=== PATIENT | female | born 1990 | race African-American/Black ===

== ENCOUNTER 2017-11-25 13:07 | Emergency (ER) | payer OTHER ==
[2017-11-25] MEDS ORDERED: Mag-Al 1200 mg/1200 mg/30 ML UDCUP ONE (14:15)
[2017-11-25] MEDS ORDERED: Lidocaine Viscous Sol 2% 15 ml UD Cup ONE (14:15)
[2017-11-25 14:17] LABS: #Basophils 0.1 thou/uL (0.0-0.2); #Eosinphils 0.1 thou/uL (0.0-0.7); #Lymphocytes 3.8 thou/uL (1.20-3.40); #Monocytes 0.8 thou/uL (0.11-0.59); #Neutrophils 8.7 thou/uL (1.40-6.50); %Eosinophils 1.1 % (0.0-10.0); %Lymphocytes 28.1 % (21.0-51.0); %Monocytes 5.7 % (0.0-10.0); %Neutrophils 64.1 % (42.0-75.0); Hemoglobin 13.4 g/dL (12.0-16.0); Mean Corpuscular HGB CONC 34.1 g/dL (32.0-36.0); Mean Corpuscular Hemoglobin 28.7 pg (27.0-31.0); Mean Corpuscular Volume 84.1 fl (81.0-99.0); Mean Platelet Volume 7.5 fL (7.4-10.4); Platelet Count 249 thou/uL (130-400); RBC Distribution Width 12.5 % (11.5-14.5); Red Blood Cell (RBC) Count 4.67 mill/uL (4.20-5.40); White Blood Cell (WBC) Count 13.6 thou/uL (4.8-10.8)
[2017-11-25 14:35] LABS: ALT (SGPT) 34 U/L (8-55); AST (SGOT) 18 U/L (5-34); Albumin 3.8 g/dL (3.5-5.0); Alkaline Phosphatase 69 U/L (40-150); Anion Gap 10 mmol/L (10-20); BUN (Urea Nitrogen) 7 mg/dL (7.0-18.7); Bilirubin, Total 0.2 mg/dL (0.2-1.2); Calc. Creatinine Clearance 0 mL/min (70-130); Calcium 9.4 mg/dL (7.8-10.44); Carbon Dioxide 24 mmol/L (22-29); Chloride 104 mmol/L (98-107); Estimated GFR-MDRD Greater than 90; Globulin 3.8 g/dL (2.4-3.5); Glucose 77 mg/dL (70-105); Potassium 3.9 mmol/L (3.5-5.1); Protein, Total 7.6 g/dL (6.0-8.3); Sodium 134 mmol/L (136-145)
[2017-11-25 14:40] LABS: CKMB 0.3 ng/mL (0-6.6); Troponin I Less than 0.010 ng/mL (< 0.028)
--- NOTE | 2017-11-25 15:36 | RAD ---
ONE VIEW CHEST: COMPARISON: 09/28/12. HISTORY: Pain. FINDINGS: Normal cardiac silhouette. The pulmonary vessels and hilum are normal. Costophrenic angles are yanely r. No consolidation or mass. No pneumothorax or osseous abnormalities. IMPRESSION: No acute cardiopulmonary process. POS: [facility]
== END 2017-11-25 15:16 | disposition home or self-care (01) ==
LOC: ERS 13:07
DX: O99.611 Diseases of the digestive system complicating pregnancy, first trimester (principal); K29.70 Gastritis, unspecified, without bleeding; O99.89 Other specified diseases and conditions complicating pregnancy, childbirth and the puerperium; R07.89 Other chest pain; Z79.899 Other long term (current) drug therapy; Z3A.11 11 weeks gestation of pregnancy
CPT/HCPCS: 36415; 71045; 80053; 82553; 84484; 85025; 93005

== ENCOUNTER 2018-01-26 18:46 | Day surgery (SDC) | payer OTHER ==
[2018-01-26 19:21] VITALS: BP 118/67; TEMP 98.7; BMI 35.9
[2018-01-26] MEDS ORDERED: Ondansetron ODT 8 MG TAB SL SCH (19:45)
[2018-01-26] MEDS ORDERED: Lactated Ringer's 1,000 ML IV SCH ×2 (19:45→21:45)
[2018-01-26 21:00] LABS: Anion Gap 15 mmol/L (10-20); BUN (Urea Nitrogen) 8 mg/dL (7.0-18.7); Calc. Creatinine Clearance 199 mL/min (70-130); Calcium 9.2 mg/dL (7.8-10.44); Carbon Dioxide 22 mmol/L (22-29); Chloride 103 mmol/L (98-107); Estimated GFR-MDRD Greater than 90; Glucose 68 mg/dL (70-105); Sodium 136 mmol/L (136-145)
[2018-01-26 21:45] LABS: Bilirubin Small (Negative); Blood, Urine Negative (Negative); Clarity CLEAR (Clear); Glucose, Urine (Dipstick) Negative (Negative); Leukocyte Small (Negative); Nitrite Negative (Negative); Protein, Urine (Dipstick) Negative (Neg-Trace)
[2018-01-26 21:47] LABS: Bacteria/HPF None Seen HPF (None Seen); Hyaline Casts/LPF 0-3 HYALINE CAST LPF (0-3 Hyaline); Pathc Cast-AUWi Flag 0.14 (0-2.49); WBC/HPF 0-3 HPF (0-3)
--- NOTE | 2018-01-27 00:37 | PRG ---
DATE OF SERVICE: 01/26/2018 PRIMARY INSTRUCTION DEAN: Kike Baez M.D. CHIEF COMPLAINT: Nausea, vomiting. HISTORY OF PRESENT ILLNESS: The patient is a 27-year-old G5, P1 female with an intrauterine pregnanc y at 20 weeks who is presenting to Labor and Delivery with 1 day history of nausea and vomiting. The patient reports that yesterday at her baby shower, she began vomiting after eating and has since bee n unable to keep liquids or food down with any regularity. The patient reports that she even vomits after drinking water. The patient reports that her sister was sick with similar symptoms earlier in the week that lasted 2 days of vomiting and then diarrhea. The patient denies any other sick contact s. The patient has experienced vomiting off and on through her , but has not had anything f or quite some time now for weeks to months. The patient denies fever. She denies headache, chest pa in, shortness of breath. She denies diarrhea or constipation. She denies any new skin rashes. She denies hip problems, knee problems, muscle weakness. She denies vaginal bleeding or leakage of fluid . The patient reports she has also been experiencing some urinary urgency and incontinence with vomi ting. PAST MEDICAL HISTORY: Negative. PAST SURGICAL HISTORY: Includes one elective . ALLERGIES: No known drug allergies. MEDICATIONS: vitamins and has been on multiple antiemetic medications during this and reports that she has Zofran at the house. SOCIAL HISTORY: Denies drug, alcohol or tobacco use. OB HISTORY: She has had 2 spontaneous miscarriages, one elective and one term vaginal deliv fani. OB LABS: Unavailable at time of dictation. REVIEW OF SYSTEMS: Per HPI. PHYSICAL EXAMINATION: VITAL SIGNS: Blood pressure is 118/67, heart rate of 92, respiratory rate of 18, temperature 98.7. GENERAL: She appears to be in no acute distress. She is alert and oriented, cooperative and pleasan t to interact with. HEENT: Head is normocephalic, atraumatic. LUNGS: Clear to auscultation bilaterally. HEART: Regular rate and rhythm. ABDOMEN: Soft, nontender to palpation. EXTREMITIES: Nontender, nonedematous. GENITOURINARY: Has been deferred at this time. The fetus had Dopplers in the 140s. BMP and urinalysis were collected. Urinalysis was significant w ith 80 of ketones, negative, small leukocyte esterase, negative bacteria, negative nitrites, and 4-6 squamous cells. BMP showed normal potassium of 4.0, sodium of 136, creatinine 0.64, calcium at 9.2 a nd a glucose of 68. ASSESSMENT AND PLAN: The patient is a 27-year-old female with an intrauterine at 20 weeks, having vomiting over the last 24 hours, unable to keep food and liquid down with regularity. The dulce magana does have a sister who has had similar symptoms earlier in the week and may be experiencing a g astroenteritis. The patient has been given IV with 2 liters of IV fluids. The patient also was give n 8 mg of Zofran sublingually. The patient expressed a desire to eat while she was here and was able to keep down to sandwich, chips, and banana. The patient was able to void for us into the second li ter of fluid with a dark concentrated urine. The patient now is feeling better and reports that she has Zofran at home and is ready to go home, so that she can go to sleep. The patient has been given instructions in the morning to take 2 tablets of her Zofran twice a day as needed. If she has diffic ulty keeping food and liquid down, it is important that she contact her physician or to present here to the emergency room for further evaluation.
== END 2018-01-26 22:24 | disposition home or self-care (01) ==
LOC: L&D/OP 18:46
PROVIDERS: ATTEND Family Medicine
DX: O99.89 Other specified diseases and conditions complicating pregnancy, childbirth and the puerperium (principal); R11.2 Nausea with vomiting, unspecified; Z3A.20 20 weeks gestation of pregnancy
CPT/HCPCS: 80048; 81001

== ENCOUNTER 2018-03-15 00:42 | Day surgery (SDC) | payer OTHER ==
[2018-03-15 01:09] VITALS: BP 120/66; TEMP 97.9; BMI 36.8
--- NOTE | 2018-03-15 01:50 | PDOC.LDHP ---
Labor and Delivery H&P Chief complaint: abdominal pain HPI: 27 y/o @ 26w6d presents due to lower abdominal cramping. She reports that the pain is really just in her pubic bone and hurts when she does movements such as putting on her pants or moving her legs in certain movements. She denies any lower abdominal pain or any pubic bone pain at rest. She says the pain started about a week ago and got progressively worse tonight while she was at work. She says she still lifts things like she did when she wasn't . She endorses a vaginal discharge that doesn't have an odor, but is watery, especially after she coughs or sneezes. She isn't sure if that is urine or a discharge. She has not had sex in the past 24 hours. She reports good movement and denies vaginal bleeding. Current gestational age (weeks): 26 (26w6d) Grav: 5 Para: 1 (1031) OB History Details: 1. Term 2. SAB 3. Elective AB 4. SAB Current complications: none Abnormal US findings: No Past Medical History: None Current medications: pre- vitamins Previous surgical history: none Allergies/Adverse Reactions: Allergies Allergy/AdvReac Type Severity Reaction Status Date / Time No Known Allergies Allergy Verified 03/15/18 01:04 Social history: none - Physical Exam Vital signs reviewed and normal: yes General: NAD Heart: RRR Lungs: CTAB Abdomen: other (Gravid, NTTP, tenderness to palpation over pubic bone) Extremeties: no edema FHT: category 1, variability present Kamas contractions every: None - Assessment 1. Clear Vaginal Discharge - rule out rupture of membranes 2. Pubic Symphysis Pain - Possible Pubic Diastasis - Plan -: 1. -Amnisure -VP3, will f/u with PCP regarding VP3 results if amnisure negative -20 minute FHT monitoring 2. Tylenol prn pubic symphysis pain This plan was discussed with Dr. York who agrees with the plan.
[2018-03-15 02:00] LABS: Amnisure Internal Control QC ACCEPTABLE (ACCEPTABLE)
[2018-03-15 02:10] LABS: Amnisure Test No Membranes Rupture (No Rupture)
--- NOTE | 2018-03-15 02:17 | PDOC.EVN ---
Event Note - Event Note Event Note: Amnisure result was negative. Not concerned for SROM at this time. No contractions seen on toco. VP3 is still pending, however, this can be followed-up outpatient with Dr. Baez , her ESTHETICIAN. Will d/c home with instructions to follow-up with Dr. Baez and take tylenol prn pain.
--- NOTE | 2018-03-15 02:55 | PRG ---
DATE OF SERVICE: 03/15/2018 TIME: Roughly 0210 hours to 0230 hours. LOCATION: Triage. EARLY CHILDHOOD EDUCATION SPECIALIST/CUSTOMS CONSULTANT: Rhonda Hgigins M.D. REASON FOR EVALUATION: Pubic discomfort at 26 weeks and 2 days. HISTORY OF PRESENT ILLNESS: In brief, this is a 27-year-old -[place] female 5, para 1 with history of kind of crampy and dull pubic pain, but no contractions. She has questionable disc harge and is unsure if it is leakage of urine with coughing, but does not really suspect leakage of f luid. However, she is unsure. No fevers or recent trauma. She has good movement. No other p renatal complications to this point. Despite her pubic discomfort which is worse with ambulation, des luna is still able to ambulate without difficulty. There is no vaginal bleeding reported. REVIEW OF SYSTEMS: Complete review of systems was checked and is otherwise negative unless specified in the HPI. OBSTETRIC HISTORY: Significant for vaginal . ALLERGIES: None. PAST MEDICAL HISTORY: Noncontributory. PHYSICAL EXAMINATION: Vital signs are stable and she is afebrile. Clinically, she is in no acute di stress. Uterus is soft and nontender. There is reproducible discomfort over the pubic symphysis are a. There is no evidence of vaginal bleeding or gross evidence of leakage. heart tones in the 140s to 150s and are reactive based on gestational age. There is no evidenc e of contractions on tocodynamometer. LABORATORY DATA: Laboratory tests ordered and AmniSure was ordered and returned negative. A vaginit is panel 3 (SET DESIGNER-3) was sent, but were not be back tonight. ASSESSMENT: This is a multigravida 26 weeks and 6 days by EDC with discomforts of . Sympto ms are most likely compatible with mild pubic diastasis of (not limiting ambulation) and/or round ligament pain. There is no evidence of complication. PLAN: 1. I have seen and evaluated the patient with Dr. Higgins. 2. No overt evidence of labor. 3. Vaginal exam was deferred as there is no evidence of labor and no vaginal bleeding. 4. No evidence of leakage based on gross physical exam and negative AmniSure. 5. SET DESIGNER-3 to be followed up by Dr. Baez. 6. Cleared for discharge after our evaluation.
== END 2018-03-15 02:45 | disposition home or self-care (01) ==
LOC: L&D/OP 00:42
PROVIDERS: ATTEND Family Medicine
DX: O99.89 Other specified diseases and conditions complicating pregnancy, childbirth and the puerperium (principal); R10.2 Pelvic and perineal pain; N89.8 Other specified noninflammatory disorders of vagina; Z3A.26 26 weeks gestation of pregnancy; Z79.899 Other long term (current) drug therapy
CPT/HCPCS: 84112; 87480; 87510; 87660; 99284

== ENCOUNTER 2018-06-08 11:19 | Inpatient (IN) | payer OTHER ==
[2018-06-08 11:53] VITALS: BMI 37.8
[2018-06-08] MEDS ORDERED: Lidocaine 1% (PF) 30 ML VIAL SC PRN ×2 (12:17→13:34)
[2018-06-08] MEDS ORDERED: NS / Oxytocin 40 units/1000ml 1,000 ML IV PRN ×2 (12:17→13:34)
[2018-06-08] MEDS ORDERED: Ondansetron PF 4 MG/2 ML Vial IVP PRN ×3 (12:19→18:13)
[2018-06-08] MEDS ORDERED: Promethazine HCl 25 MG/ML VIAL IM PRN ×2 (12:19→13:29)
[2018-06-08] MEDS: Lactated Ringer's 1,000 ML IV SCH ×2 (12:30→16:07)
[2018-06-08] MEDS ORDERED: Fentanyl 4 mcg/Bup 0.1% Cadd 100 ML ONE (12:30)
[2018-06-08 12:59] LABS: Hemoglobin 11.4 g/dL (12.0-16.0); Mean Corpuscular Hemoglobin 25.9 pg (27.0-31.0); Mean Corpuscular Volume 78.6 fL (78.0-98.0); Platelet Count 192 thou/uL (130-400); RBC Distribution Width 13.5 % (11.5-14.5); Red Blood Cell (RBC) Count 4.41 mill/uL (4.20-5.40); White Blood Cell (WBC) Count 7.4 thou/uL (4.8-10.8)
--- NOTE | 2018-06-08 13:07 | PDOC.FPROB ---
FMR OB H&P: HPI - History of Present Illness Chief Complaint: ROM, Cxns History of Present Illness: This a 27 yo F at 39.3 weeks here for cxns and possible ROM. State she had gush of clear fluid at 1030 this AM and has been roger every 5 minutes or so since that time. She states she has also had mild vaginal bleeding. Contractions have been getting stronger through the course of the afternoon. She denies headache, visual changes, sob. She she has had mild swelling at the ankles with no recent changes. Primary Care Physician: Nestor FMR OB H&P: Current - Care : 5 Para: 1 Gestational age: 39.3 Due date: 06/12/18 Total weight gain: 8 wk US Course/Complications: BV treated - OB Labs Blood type: A RH: positive Antibody Screen: negative HIV: negative RPR: negative HepBsAg: negative Rubella: immune Urine drug screen: negative Gonorrhea: negative Chlamydia: negative Pap Smear: neg 2017 1 hour gtt: 104 FMR OB H&P: History - Past Medical History PMH: non-contributory - OB History OB History: 1T miscarriage x3 2016 - PRODUCE WRAPPER History PRODUCE WRAPPER History: non-contributory Denies D/C - Surgical History Sx History: neg - Social History Social History: denies alcohol, tobacco, smoking FMR OB H&P: Medications - Current Allergies/Adverse Reactions: Allergies Allergy/AdvReac Type Severity Reaction Status Date / Time No Known Allergies Allergy Verified 06/08/18 11:45 FMR OB H&P: ROS - Review of Systems General: denies: fever/chills, weight/appetite/sleep changes, fatigue Eyes: denies: eye pain ENT: denies: nasal congestion, sore throat Cardiovascular: denies: chest pain, palpitation Respiratory: denies: cough, congestion, shortness of breath Gastrointestinal: denies: abdominal pain, indigestion, diarrhea, constipation Genitourinary (Female): denies: dysuria, hematuria Neurologic: denies: numbness, syncope, seizures Integumentary: denies: itching, rash Psychological: denies: depression, anxiety FMR OB H&P: Vital Signs - Maternal Vital signs: Vital Signs - First Documented Temp Pulse Resp BP 98.2 F 69 18 141/75 H 06/08/18 11:43 12/09/18 11:43 06/08/18 11:43 06/08/18 11:43 - Heart Tones Baseline: 140 Variability: moderate Acceleration: present Deceleration: absent Category: category 1 [place] contractions every: 5-7 min FMR OB H&P: Physical Exam - Physical Exam General: NAD, awake, alert and oriented HEENT: normocephalic and atraumatic, PERRLA, EOMI Neck: supple Heart: RRR, normal S1/S2, no murmurs/rubs/gallops General: CTAB, no respiratory distress, good air movement Abdomen: soft, gravid, fundus(cm), non-tender Musculoskeletal: normal gait and station, pulses present Neurological: cranial nerves II through XII intact Skin: no rash, capillary refill <2 seconds - Pelvic Exam SVE: 80/-2 Presentation: cephalic FMR OB H&P: Results - Labs Lab results: Laboratory Results - last 24 hr 06/08/18 06/08/18 12:43 12:44 WBC 7.4 RBC 4.41 Hgb 11.4 L Hct 34.7 L MCV 78.6 MCH 25.9 L MCHC 33.0 RDW 13.5 Plt Count 192 MPV 9.0 Crossmatch See Detail FMR OB H&P: A/P - Problem List (1) Vaginal delivery Current Visit: Yes Status: Acute Code(s): O80 - ENCOUNTER FOR FULL-TERM UNCOMPLICATED DELIVERY Disposition: # Term in labor - /-2, cat 1 strip - GBS negative, blood type A+ - possible ROM 1030, bloody show amniosure with be un-effective - Patient desires epidural, will AROM if necessary after this - Will monitor and start pitocin as indicated - expectant management Discussion: Date/Time: 06/08/18 1305 This H&P was discussed with [] and [] who agree with the above documentation and plan. Attending Addendum - Attending Addendum Date/Time: 06/08/18 5782 I personally evaluated the patient and discussed the management with Dr. Kirk. I agree with the History, Examination, Assessment and Plan documented above.
[2018-06-08 13:22] LABS: ALT (SGPT) 9 U/L (8-55); AST (SGOT) 11 U/L (5-34); Alkaline Phosphatase 212 U/L (40-150); Anion Gap 12 mmol/L (10-20); BUN (Urea Nitrogen) 6 mg/dL (7.0-18.7); Bilirubin, Total 0.3 mg/dL (0.2-1.2); Calc. Creatinine Clearance 228 mL/min (70-130); Calcium 8.7 mg/dL (7.8-10.44); Carbon Dioxide 21 mmol/L (22-29); Chloride 108 mmol/L (98-107); Estimated GFR-MDRD Greater than 90; Globulin 3.2 g/dL (2.4-3.5); Glucose 72 mg/dL (70-105); Potassium 3.9 mmol/L (3.5-5.1); Protein, Total 6.2 g/dL (6.0-8.3); Sodium 137 mmol/L (136-145)
[2018-06-08] MEDS ORDERED: ePHEDrine/0.9% NaCl/PF SYRINGE 50 mg/10 ml SLOW IVP PRN (13:29)
[2018-06-08] MEDS ORDERED: Acetaminophen 325 MG TAB PO PRN (13:29)
[2018-06-08] MEDS ORDERED: Naloxone HCl 0.4 mg/ml Vial IVP PRN ×2 (13:29)
[2018-06-08] MEDS ORDERED: Lactated Ringer's 500 ML IV PRN (13:29)
[2018-06-08] MEDS ORDERED: diphenhydrAMINE 50 MG/ML VIAL IVP PRN (13:29)
[2018-06-08] MEDS ORDERED: Eucerin (Mineral Oil/Petrolatum,White) 30 gm Jar TOP PRN (13:29)
[2018-06-08] MEDS ORDERED: Fentanyl 4 mcg/Bupivacaine 0.1% Cassette 100 ML EPIDURAL SCH (13:30)
[2018-06-08] MEDS ORDERED: Communication Order-Pharmacy FS SCH (13:30)
[2018-06-08 13:37] LABS: Syphilis Antibody Nonreactive (Nonreactive); Syphilis Antibody Index 0.03 S/CO (<1.00 Non-Reactive)
--- NOTE | 2018-06-08 14:01 | PDOC.EVN ---
Event Note - Event Note Event Note: SROM- clear fluid /-2 Category I strip <Clayton Kirk - Last Filed: 06/08/18 14:00> Attending Addendum - Attending Addendum Date/Time: 06/08/18 1513 I personally evaluated the patient and discussed the management with Dr. Kirk. I agree with the Assessment and Plan documented above. <Tereso Rose - Last Filed: 06/08/18 15:14>
[2018-06-08 14:09] LABS: HBSAg Index 0.21 S/CO (0-0.99); Hep B Surf Ag Non-Reactive S/CO (NonReactive)
[2018-06-08] MEDS: NS w/ Oxytocin 10 units 500 ML IV SCH ×2 (14:28→15:00)
--- NOTE | 2018-06-08 15:58 | PDOC.EVN ---
Event Note - Event Note Event Note: /-1 Cxns q 2-3 minutes turned off pitocin Cat 1 strip, no decels <Clayton Kirk - Last Filed: 06/08/18 15:57> Attending Addendum - Attending Addendum Date/Time: 06/08/181815 I personally evaluated the patient and discussed the management with Dr. Kirk. I agree with Examination, Assessment and Plan. <Tereso Rose - Last Filed: 06/08/18 18:16>
--- NOTE | 2018-06-08 16:33 | PDOC.EVN ---
Event Note - Event Note Event Note: /0 anterior lip cxn q2 minutes Cat 1 strip expectant management <Clayton Kirk - Last Filed: 06/08/18 16:32> Attending Addendum - Attending Addendum Date/Time: 06/08/181814 I personally evaluated the patient and discussed the management with Dr. Kirk. I agree with Examination, Assessment and Plan documented above. <Tereso Rose - Last Filed: 06/08/18 18:15>
[2018-06-08] MEDS ORDERED: Milk Of Magnesia 30 ML UDCUP PO PRN (18:13)
[2018-06-08] MEDS ORDERED: Lanolin Ointment 7 GM TUBE TOP PRN (18:13)
[2018-06-08] MEDS ORDERED: NS / Oxytocin 40 units/1000ml 1,000 ML IV SCH (18:13)
[2018-06-08] MEDS ORDERED: Bisacodyl 10 MG SUPP PR PRN (18:13)
[2018-06-08] MEDS: Ibuprofen 800 MG TAB PO SCH (22:14)
[2018-06-08] MEDS: Docusate Calcium (SURFAK) 240 MG CAP PO SCH (22:15)
[2018-06-08] MEDS ORDERED: diphenhydrAMINE 25 MG CAP PO PRN (22:55)
--- NOTE | 2018-06-09 00:35 | PDOC.PP ---
Post Progress Note Post Day #: PPD#1 Subjective: Resting. No complaints. PO intake tolerated: yes Flatus: yes Ambulation: yes Vital Signs (12 hours) Temp Pulse Resp BP Pulse Ox 06/08/18 19:42 98.2 F 82 20 155/72 H 96 Weight Weight 99.79 kg - Physical Examination General: NAD Respiratory: non-labored breathing Abdominal: no distention Psychiatric: A&Ox3, normal affect Result Diagrams: 06/08/18 12:44 06/08/18 12:43 Additional Labs: Post Labs Blood Type A POSITIVE 06/08/18 12:43 Hep Bs Antigen Non-Reactive S/CO (NonReactive) 06/08/18 12:43 (1) Vaginal delivery Code(s): O80 - ENCOUNTER FOR FULL-TERM UNCOMPLICATED DELIVERY Status: Acute - Assessment/Plan Doing well. Routine PP care.
[2018-06-09] MEDS: Ibuprofen 800 MG TAB PO SCH ×3 (06:02→22:18)
[2018-06-09 06:06] LABS: Hemoglobin 10.9 g/dL (12.0-16.0); Mean Corpuscular Hemoglobin 26.2 pg (27.0-31.0); Mean Corpuscular Volume 79.3 fL (78.0-98.0); Mean Platelet Volume 9.1 fL (7.4-10.4); Platelet Count 182 thou/uL (130-400); RBC Distribution Width 13.7 % (11.5-14.5); Red Blood Cell (RBC) Count 4.16 mill/uL (4.20-5.40); White Blood Cell (WBC) Count 13.3 thou/uL (4.8-10.8)
[2018-06-09] MEDS: Ferrous Sulfate 325 MG TAB PO SCH ×2 (07:28→17:50)
[2018-06-09] MEDS ORDERED: Adacel (T-DAP) 0.5 ML SYRINGE IM ONE (09:00)
[2018-06-09] MEDS: Prenatal Vitamin 1 TAB PO SCH (09:08)
[2018-06-09] MEDS: Docusate Calcium (SURFAK) 240 MG CAP PO SCH ×2 (09:08→22:18)
--- NOTE | 2018-06-09 12:06 | OP ---
DATE OF PROCEDURE: 06/08/2018 DELIVERING PHYSICIAN: Clayton Kirk MD. ATTENDING PHYSICIAN: Dr. Demarcus Rose PROCEDURE PERFORMED: Spontaneous vaginal delivery. ANESTHESIA: Epidural. QUANTITATIVE BLOOD LOSS: 393 mL. PREOPERATIVE DIAGNOSIS: Term intrauterine , in labor. POSTOPERATIVE DIAGNOSIS: Term intrauterine , delivered. INDICATIONS FOR PROCEDURE: A 27-year-old G5, P1, presented in active labor to L and D, complaining of ruptured membrane. DELIVERY NOTE: This is a 27-year-old female, G1-0-3-2 at 39-3/7th weeks, who delivered a viable male at 1700 hours. Following an uneventful antepartum course, a vigorous male infant was delivered over an intact perineum in the left occiput anterior position. Anterior shoulder and then the remainder of the body were delivered. No nuchal cord. The head was held down. Mouth and nares were both suctioned. Cord clamped and cut and cord blood collected. Placenta delivered intact in the Cardona position with a 3-vessel cord noted. Fundal massage was performed and the fundus was firm. The cervix and vagina were inspected. There was found to be a first-degree periurethral tear on the right side. This was repaired with 1 simple interrupted 3-0 chromic suture. Good approximation was appreciated as was hemostasis. The infant went to the [facility] in good condition for routine care. Apgars were 9 and 9 at 1 and 5 minutes respectively. The patient tolerated the delivery well and went to the unit after routine recovery care. Present for this delivery. No complications. Baby and Mom to recover in R. Job ID: [id number] MTDD
[2018-06-10] MEDS: Ibuprofen 800 MG TAB PO SCH (06:18)
[2018-06-10 08:02] VITALS: BP 144/79; TEMP 98.2
[2018-06-10] MEDS: Ferrous Sulfate 325 MG TAB PO SCH (10:42)
[2018-06-10] MEDS: Prenatal Vitamin 1 TAB PO SCH (10:42)
[2018-06-10] MEDS: Docusate Calcium (SURFAK) 240 MG CAP PO SCH (10:42)
--- NOTE | 2018-06-11 04:44 | DIS ---
DATE OF ADMISSION: 06/08/2018 DATE OF DISCHARGE: 06/10/2018 ADMITTING DIAGNOSES: 1. Intrauterine at 39 weeks. 2. Active labor. DISCHARGE DIAGNOSES: 1. Intrauterine at 39 weeks. 2. Active labor. PROCEDURE PERFORMED: Term spontaneous vaginal delivery. HOSPITAL COURSE: The patient is a 27-year-old G5, P1 female with an intrauterine at 39 weeks, who presented in active labor. Her labor course was uncomplicated and resulted in a term spontaneous vaginal delivery. Her course has also been uncomplicated. Today is day 2. She is tolerating p.o., voiding on her own, having good pain control and decreased lochia. Vital signs this morning; most recent blood pressure is 123/63, temperature 98.3, pulse is 67, and respiratory rate 18. In general, she appears to be in no acute distress. She is alert and oriented, cooperative, pleasant to interact with. Fundus is firm. Incision is clean, dry, and intact. The patient is being discharged to home with ibuprofen to be taken for pain control as needed. She has instructions to follow up with her primary OB, Dr. Baez, in 6 weeks for a check or sooner if she experiences fever, increasing bleeding or pain. Job ID: [id number]
== END 2018-06-10 13:03 | disposition home or self-care (01) | DRG 807 ==
LOC: L&D/OP 11:19 → L&D 13:16 → 3SW 22:38
PROVIDERS: ADMIT Obstetrics & Gynecology; ATTEND Obstetrics & Gynecology
PROC: 10E0XZZ Delivery of Products of Conception, External Approach (ICD-10-PCS; principal; 2018-06-08)
PROC: 0HQ9XZZ Repair Perineum Skin, External Approach (ICD-10-PCS; 2018-06-08)
DX: O71.82 Other specified trauma to perineum and vulva (principal); Z37.0 Single live birth; Z3A.39 39 weeks gestation of pregnancy
CPT/HCPCS: 36415; 51702; 80053; 85027; 86780; 86850; 86900; 86901; 87340; 99285; J1200

== ENCOUNTER 2019-03-04 23:31 | Emergency (ER) | payer OTHER ==
[2019-03-05 01:09] LABS: #Basophils 0.1 thou/uL (0.0-0.2); #Eosinphils 0.1 thou/uL (0.0-0.7); #Lymphocytes 2.6 thou/uL (1.20-3.40); #Monocytes 0.7 thou/uL (0.11-0.59); #Neutrophils 10.2 thou/uL (1.40-6.50); %Basophils 0.4 % (0.0-1.0); %Eosinophils 0.5 % (0.0-10.0); %Lymphocytes 19.1 % (21.0-51.0); %Monocytes 5.1 % (0.0-10.0); %Neutrophils 74.9 % (42.0-75.0); Hemoglobin 12.7 g/dL (12.0-16.0); Mean Corpuscular HGB CONC 34.3 g/dL (32.0-36.0); Mean Corpuscular Hemoglobin 27.4 pg (27.0-31.0); Mean Corpuscular Volume 79.8 fL (78.0-98.0); Mean Platelet Volume 7.7 fL (7.4-10.4); Platelet Count 269 thou/uL (130-400); RBC Distribution Width 13.3 % (11.5-14.5); Red Blood Cell (RBC) Count 4.64 mill/uL (4.20-5.40); White Blood Cell (WBC) Count 13.6 thou/uL (4.8-10.8)
[2019-03-05 01:31] LABS: ALT (SGPT) 20 U/L (8-55); AST (SGOT) 10 U/L (5-34); Albumin 3.8 g/dL (3.5-5.0); Alkaline Phosphatase 80 U/L (40-150); Anion Gap 13 mmol/L (10-20); BUN (Urea Nitrogen) 7 mg/dL (7.0-18.7); Bilirubin, Total 0.4 mg/dL (0.2-1.2); Calc. Creatinine Clearance 0 mL/min (70-130); Calcium 9.7 mg/dL (7.8-10.44); Carbon Dioxide 23 mmol/L (22-29); Chloride 103 mmol/L (98-107); Estimated GFR-MDRD Greater than 90; Globulin 3.9 g/dL (2.4-3.5); Glucose 84 mg/dL (70-105); Potassium 4.2 mmol/L (3.5-5.1); Protein, Total 7.7 g/dL (6.0-8.3); Sodium 135 mmol/L (136-145)
[2019-03-05 02:35] LABS: Bacteria/HPF None Seen HPF (None Seen); Bilirubin Negative (Negative); Blood, Urine Negative (Negative); Clarity Clear (Clear); Glucose, Urine (Dipstick) Normal (Negative); Leukocyte 75 Leu/uL (Negative); Nitrite Negative (Negative); Protein, Urine (Dipstick) 30 mg/dL (Neg-Trace)
[2019-03-05] MEDS ORDERED: Ondansetron ODT 4 MG TAB ONE (03:37)
== END 2019-03-05 03:47 | disposition home or self-care (01) ==
LOC: ERS 23:31
DX: O21.0 Mild hyperemesis gravidarum (principal); Z3A.12 12 weeks gestation of pregnancy
CPT/HCPCS: 36415; 80053; 81003; 81015; 84702; 85025; 86900; 86901; 87086; Q0162

== ENCOUNTER → 2019-08-23 | Day surgery (SDC) | payer OTHER ==
[~2019-08-23] MED LIST: hydrALAZINE 20 MG/ML VIAL SLOW IVP PRN
[2019-08-23 18:36] VITALS: BMI 39.8
--- NOTE | 2019-08-23 19:37 | PRG ---
DATE OF SERVICE: 08/23/2019 TIME OF EVALUATION: Roughly 1909 until 1918. LOCATION: Labor and Delivery Triage in bed B. In brief, I evaluated the patient at bedside. While I initially dictated, no evidence of regular contractions, tocodynamometer does show some irregular contractions about every 3 to 5 minutes or so. Cervical exam was only 1 cm, still thick, and position is high. There is no evidence of vaginal bleeding or leakage of fluid. I reviewed the patient's strip at bedside and found the strip to be category 1/reactive. Clinically, the patient does not look like she is in labor and she is in no acute distress and quite comfortable. I did discuss with her that as she does not have a history of , and she is only 1 cm, I elected not to administer steroids at this time as she is not having advanced dilation (greater than 2 cm). I also advised her to seek followup within 24 hours (tomorrow) with her physician at [facility] to see there is any further cervical progress; at which time, steroids may be given if anticipated delivery under 36 weeks and 6 days is suspected. At this time, there is no evidence of true labor, although she is having contractions, the fact that she is only 1 cm and still thick, makes my indication of true labor to be low. I feel that she is clinically stable for discharge, although I gave her close warnings that if symptoms progress, she is to return. Job ID: [id number]
--- NOTE | 2019-08-23 19:38 | HP ---
This is a patient of Dr. Murguia at [facility]. EGA is 36 weeks and 2 days. HOSPITAL COURSE: In brief, this is a 29-year-old G6, P2 with a history of 2 term deliveries, one elective AB and 2 SABs, who is here for some spotting. She denies vaginal bleeding, regular contractions, or menstrual-style vaginal bleeding. She denies fever or recent intercourse. She denies recent trauma. She has good movement. REVIEW OF SYSTEMS: Complete review of systems was checked and is otherwise negative unless specified in the HPI. PAST MEDICAL HISTORY: Negative. PAST SURGICAL HISTORY: [place] teeth. OB HISTORY: Significant for 2 term deliveries, 1 elective AB, and 2 SABs. ALLERGIES: NONE. SOCIAL HISTORY: Noncontributory. PHYSICAL EXAMINATION: VITAL SIGNS: Stable. She is afebrile. She is normotensive. GENERAL: She is in no acute distress. ABDOMEN: Soft and nontender. Cervical exam is currently pending. monitor, external monitor reveals a category 1 strip around 130s to 140s. There are no contractions on tocodynamometer. ASSESSMENT: This is a 29-year-old G6, P2, who is currently at 36 weeks and 2 days gestation with spotting. PLAN: 1. Check cervix. 2. Reactive nonstress test. 3. Unless there is evidence of active labor, we will allow for outpatient followup. Job ID: [id number] MTDD
== END ==
LOC: L&D/OP 17:54
PROVIDERS: ATTEND Obstetrics & Gynecology
DX: O26.853 Spotting complicating pregnancy, third trimester (principal); O09.293 Supervision of pregnancy with other poor reproductive or obstetric history, third trimester; Z3A.36 36 weeks gestation of pregnancy
CPT/HCPCS: 99282